=== PATIENT | male | born 1970 | race Caucasian/White ===

== ENCOUNTER 2022-03-27 11:34 | Outpatient (CLI) | payer OTHER | END 2022-03-27 11:35 | disposition home or self-care (01) | LOC: SCSMRI 11:34 | PROVIDERS: ATTEND Chiropractor | DX: M47.22 Other spondylosis with radiculopathy, cervical region (principal); M48.02 Spinal stenosis, cervical region | CPT/HCPCS: 70210; 72141 ==

== ENCOUNTER 2022-04-07 14:10 | Emergency (ER) | payer OTHER ==
[2022-04-07] MEDS ORDERED: Caffeine Citrated 60 MG/3 ML (ORALLY) PO SCH (15:30)
== END 2022-04-07 18:20 | disposition home or self-care (01) ==
LOC: ERS 14:10
DX: G97.1 Other reaction to spinal and lumbar puncture (principal)
CPT/HCPCS: 99283; J0706